=== PATIENT | female | born 2000 | race Caucasian/White ===

== ENCOUNTER → 2023-06-03 | Outpatient (CLI) | payer BC, SELFPAY ==
[2023-06-03 10:04] LABS: Absolute Lymphocyte Count 2.22 X10^3/uL (0.83-4.51); Absolute Neutrophil Count 3.4 X10^3/uL (2.0-7.7); Basophil# 0.09 X10^3/uL; Basophil% 1.4 % (0-1); Eosinophil# 0.09 X10^3/uL; Eosinophils% 1.4 % (0-5); Hematocrit 43.3 % (37-47); Hemoglobin 14.3 g/dL (12.0-15.0); Lymphocyte # 2.22 X10^3/ul (0.83-4.51); Lymphocyte % 35.1 % (19-41); Mean Corpuscular Hgb 27.7 pg (27.0-32.0); Mean Corpuscular Volume 83.8 fL (81-99); Mean Platelet Vol. 11.1 fl (6.2-12.0); Monocyte% 7.9 % (0-10); NRBC Flagged by Analyzer 0 % (0-5); Neutrophil # 3.42 X10^3/uL (2.7-7.7); Platelet Count 303 K/mm3 (150-450); RBC Distribution Width CV 13.7 % (11.6-14.6); RBC Distribution Width SD 42.2 fl (35.1-43.9); Red Blood Count 5.17 M/mm3 (4.2-5.4); White Blood Count 6.3 K/mm3 (4.4-11.0)
[2023-06-03 10:30] LABS: Vitamin D,25 Hydroxy 28.1 ng/mL
[2023-06-03 10:52] LABS: ALB/GLOB Ratio 0.7 RATIO (0.9-2.4); AST(SGOT) 22 U/L (15-37); Alanine Aminotransfer ALT/SGPT 43 U/L (13-56); Albumin, Serum 3.2 g/dL (3.2-5.0); Alkaline Phosphatase 80 U/L (45-117); Anion Gap 7 (5-15); BUN 10 mg/dL (7-18); BUN/Creat Ratio 11.9 RATIO (10-20); Calcium,Total 8.9 mg/dL (8.5-10.1); Chloride 106 mmol/L (98-107); Cholesterol 169 mg/dL (200); Creatinine, Serum 0.84 mg/dL (0.55-1.02); EST Glomerular Filtration Rate 88 mL/min (>60); Est Glom Filt Rate - Afr Amer 106 mL/min (>60); Globulin 4.5 g/dL (2.2-4.2); Glucose 86 mg/dL (74-106); High Density Lipoprotein 73 mg/dL; Potassium 4.1 mmol/L (3.5-5.1); Protein, Total 7.7 g/dL (6.4-8.2); Sodium Level 138 mmol/L (136-145); Thyroid Stim Hormone (TSH) 0.76 uIU/mL (0.358-3.74); Triglycerides 60 mg/dL; Very Low Density Lipoprotein 12 mg/dL (5-40)
== END | disposition home or self-care (01) ==
PROVIDERS: Visit Provider Obstetrics & Gynecology
DX: Z01.419 Encounter for gynecological examination (general) (routine) without abnormal findings (principal); Z13.1 Encounter for screening for diabetes mellitus; Z13.220 Encounter for screening for lipoid disorders; Z13.29 Encounter for screening for other suspected endocrine disorder; Z13.21 Encounter for screening for nutritional disorder
CPT/HCPCS: 36415; 80053; 80061; 82306; 84443; 85025

== ENCOUNTER → 2023-12-24 | Outpatient (CLI) | payer BC, SELFPAY ==
[2023-12-24 09:28] LABS: Absolute Lymphocyte Count 1.59 X10^3/uL (0.83-4.51); Absolute Neutrophil Count 6.2 X10^3/uL (2.0-7.7); Basophil# 0.05 X10^3/uL; Basophil% 0.6 % (0-1); Eosinophil# 0.08 X10^3/uL; Eosinophils% 0.9 % (0-5); Hematocrit 39.9 % (37-47); Hemoglobin 13.5 g/dL (12.0-15.0); Lymphocyte # 1.59 X10^3/ul (0.83-4.51); Lymphocyte % 18.1 % (19-41); Mean Corp Hgb Conc 33.8 g/dL (32-36); Mean Corpuscular Hgb 28.3 pg (27.0-32.0); Mean Corpuscular Volume 83.6 fL (81-99); Mean Platelet Vol. 10.2 fl (6.2-12.0); Monocyte# 0.82 X10^3/uL; Monocyte% 9.4 % (0-10); NRBC Flagged by Analyzer 0 % (0-5); Neutrophil # 6.21 X10^3/uL (2.7-7.7); Neutrophil % 70.8 % (47-70); Platelet Count 260 K/mm3 (150-450); RBC Distribution Width CV 13.6 % (11.6-14.6); RBC Distribution Width SD 41.9 fl (35.1-43.9); Red Blood Count 4.77 M/mm3 (4.2-5.4); White Blood Count 8.8 K/mm3 (4.4-11.0)
--- OUTSIDE RECORDS SUMMARY | 2023-12-24 09:29 | XMS RPT_ITS | CCD ---
Author Name Unknown Address [address] [place] [id number] Organization [facility] Care Team Providers Care Engineering Documentation Specialist Name Role Phone SLAGA, PAU M Unavailable Unavailable SLAGA, PUA M Unavailable Unavailable SLAGA, PAU M Unavailable Unavailable SLAGA, PAU M Unavailable Unavailable SLAGA, PAU M Unavailable Unavailable SLAGA, PAU M Unavailable Unavailable SLAGA, PAU M Unavailable Unavailable SERRI, GENEISO Unavailable Unavailable SLAGA, PAU M Unavailable Unavailable ERICA WILLARD Unavailable Unavailab ERICA Guerrier Unavailable Unavailab ERICA Guerrier Unavailable Unavailab ERICA Guerrier Unavailable Unavailab ERICA Guerrier Unavailable Unavailab ERICA Guerrier Unavailable Unavailab ERICA Guerrier Unavailable Unavailab ERICA Guerrier Unavailable Unavailab ERICA Guerrier Unavailable Unavailab ERICA Guerrier Unavailable Unavailab madelin RENTERIA PRIMARY MD ORLIN Unavailable Unavailable AMNA, LIS Unavailable Unavailable Problems Problem Classification Problem Date Documented Date Episodic/Chronic Essential hypertension (2 sources) Essential (primary) hypertension; Translations: [Essential (primary) hypertension] Onset: 09-05-2018 Chronic Genitourinary symptoms and ill-defined conditions (2 sources) Proteinuria, unspecified; Translations: [Proteinuria, unspecified] Onset: 09-12-2018 Episodic Headache; including migraine (2 sources) Migraine without aura, not intractable, without status migrainosus; Translations: [Migraine without aura, not intractable, without status migrainosus] Onset: 09-12-2018 Chronic Malaise and fatigue (2 sources) Chronic fatigue, unspecified; Translations: [Chronic fatigue, unspecified] Onset: 10-15-2017 Chronic Malaise and fatigue (2 sources) Other fatigue; Translations: [Other fatigue] Onset: 09-05-2018 Episodic Nonspecific chest pain (2 sources) Other chest pain; Translations: [Other chest pain] Onset: 09-12-2018 Episodic Other injuries and conditions due to external causes (2 sources) Angioneurotic edema, sequela; Translations: [Angioneurotic edema, sequela] Onset: 09-12-2018 Episodic Other nutritional; endocrine; and metabolic disorders (2 sources) Obesity, unspecified; Translations: [Obesity, unspecified] Onset: 09-05-2018 Chronic Other nutritional; endocrine; and metabolic disorders (2 sources) Abnormal weight gain; Translations: [Abnormal weight gain] Onset: 09-05-2018 Episodic Residual codes; unclassified (2 sources) Localized edema; Translations: [Localized edema] Onset: 09-05-2018 Episodic Results Test Name Value Interpretation Reference Range Facil ity Encounters Encounter Date Encounter Type Care Provider Facility Start: 09-26-2018 End: 09-26-2018 Emergency department patient visit MD [facility] Start: 09-21-2018 Patient encounter procedure ERICA WILLARD Facility:B Start: 09-13-2018 End: 09-14-2018 Patient encounter procedure ERICA WILLARD Facility:B Start: 09-12-2018 End: 09-17-2018 Patient encounter procedure ERICA WILLARD Facility:A Start: 09-12-2018 End: 09-17-2018 Patient encounter procedure ERICA WILLARD Facility:A Start: 09-05-2018 End: 09-10-2018 Patient encounter procedure ERICA WILLARD Facility:A Start: 08-28-2018 End: 08-28-2018 Emergency department patient visit PAU Wilton SHEKHAR Facility:A Start: 08-22-2018 Patient encounter procedure PAU M SHEKHAR Facility:A Start: 10-15-2017 End: 10-20-2017 Patient encounter procedure PAU Wilton SHEKHAR Facility:[facility] Payers Date Payer Category Payer Unknown [id number] 2000 Unknown [id number] 2.16.8 [id number] 1998 Unknown [id number] 2.16.8 [id number] 1998 Unknown [id number] 2.16.8 [id number] 1998 Unknown [id number] 2.16.8 [id number] 1998 Unknown [id number] 2.16.8 [id number] 1998 Unknown [id number] 2.16.8 [id number] 1998 Unknown [id number] 2.16.8 [id number] 1998 Unknown [id number] 2.16.8 [id number] 1998 Unknown [id number] 2.16.8 [id number] 1998 Unknown [id number] 2.16.8 [id number] Summary Purpose Family History No Family History Records FoundNo Family History Records Found Advance Directives No Advanced Directives Records FoundNo Advanced Directives Records Found Additional Source Comments INFORMATION SOURCE (unrecogn ized section and content) DATE CREATED AUTHOR AUTHOR'S RAJNI ATVINCENZO 10/12/2018 [facility] FOR RECORDS PERTAINING TO PATIENTS WHO ARE OR HAVE BEEN ENROLLED IN A CHEMICAL DEPENDENCY/SUBSTANCEABUSE PROGRAM, SOME INFORMATION MAY BE OMITTED. This clinical summary was aggregated from multiple sources. Caution should be exercised in using it in the provision of clinical care. This summary normalizes information from multiple sources, and as a consequence, information in this document may materially change the coding, format and clinical context of patient data. In addition, data may be omitted in some cases. CLINICAL DECISIONS SHOULD BE BASED ON THE PRIMARY CLINICAL RECORDS. [facility] [employer] provides no warranty or guarantee of the accuracy or completeness of information in this document.
[2023-12-24 10:46] LABS: HIV - WCH Non-Reactive (Nonreactive); Hepatitis B Surface Antigen Non-Reactive (Nonreactive); Hepatitis C Antibody Non-Reactive (Nonreactive); Rubella IgG Reactive (Nonreactive); Syphilis Antibodies Non-reactive
[2023-12-24 12:06] LABS: Hemoglobin A1c 5.2 % (3.8-5.6)
[2023-12-28 07:08] LABS: Chlamydia By Nucleic Acid AMP Negative (Negative); Gonococcus By Nucleic Acid AMP Negative (Negative)
[2023-12-31 21:46] LABS: HPV Reflexed? NOT INDICATED
== END | disposition home or self-care (01) ==
PROVIDERS: Referring Provider Registered Nurse; Visit Provider Registered Nurse
DX: Z34.90 Encounter for supervision of normal pregnancy, unspecified, unspecified trimester (principal)
CPT/HCPCS: 36415; 83036; 85025; 86703; 86762; 86780; 86803; 86850; 86900; 86901; 87086; 87088; 87340; 87491; 87591; 88175; G0145

== ENCOUNTER → 2024-04-06 | Outpatient (CLI) | payer BC, SELFPAY ==
--- NOTE | 2024-04-06 13:17 | US_ITS ---
STUDY: SECOND AND THIRD TRIMESTER OBSTETRICAL ULTRASOUND - LIMITED REASON FOR EXAM: Female, 23 years old growth LMP: October 21, 2023. PRIOR ULTRASOUND: None. TECHNIQUE: Transabdominal TECHNICAL QUALITY: Adequate. FINDINGS: There is a single intrauterine fetus. The fetus is in a cephalic presentation. There is demonstrated cardiac activity with a heart rate of 130 bpm. There is a normal amniotic fluid volume. The largest amniotic fluid pocket measures 4.6 cm x 5.4 cm. The amniotic fluid index (TRENT) is within normal limits. The placenta is anterior in location and is not low lying. There are Grade 0 placental changes. The cervix measures 3.6 cm in length. There is a 2.6 cm x 1.8 cm cyst in the cervix. BIOMETRY: BPD: 5.83 cm: 23 weeks, 6 days HC: 21.85 cm: 23 weeks, 6 days AC: 19.5 cm: 24 weeks, 1 days FL: 4.27 cm: 4 weeks, 0 days Age by LMP: 24 weeks, 0 days. DARVIN by LMP: July 27, 2024. age by current US: 23 weeks, 6 days. DARVIN by current US: July 28, 2024. Estimated weight: 661 grams, +/- 99 grams, 47 percentile. US/OB Limited With Biometrics IMPRESSION: Single live intrauterine gestation with a mean gestational age of 23 weeks and 6 days. Electronically Signed: Shalom Thomson MD at 14:36 EDT ,
== END | disposition home or self-care (01) ==
PROVIDERS: Referring Provider Advanced Practice Midwife; Visit Provider Advanced Practice Midwife
DX: Z34.02 Encounter for supervision of normal first pregnancy, second trimester (principal); E66.9 Obesity, unspecified
CPT/HCPCS: 76816

== ENCOUNTER → 2024-05-05 | Outpatient (CLI) | payer BC, SELFPAY ==
--- NOTE | 2024-05-05 08:07 | US_ITS ---
STUDY: SECOND AND THIRD TRIMESTER OBSTETRICAL ULTRASOUND - LIMITED REASON FOR EXAM: Female, 23 years old growth LMP: 10/21/2023 PRIOR ULTRASOUND: 04/06/2024 TECHNIQUE: Transabdominal TECHNICAL QUALITY: Adequate. FINDINGS: There is a single intrauterine fetus. The fetus is in a cephalic presentation. There is demonstrated cardiac activity with a heart rate of 131 bpm. There is a normal amniotic fluid volume. The largest amniotic fluid pocket measures 5.0 cm. The amniotic fluid index (TRENT) is cm. The placenta is anterior in location and is not low lying. There are Grade 1 placental changes. The cervix measures 4.0 cm in length. BIOMETRY: BPD: 7.1 cm: 28 weeks, 3 days HC: 26.0 cm: 28 weeks, 2 days AC: 24.7 cm: 29 weeks, 0 days FL: 5.3 cm: 28 weeks, 2 days Age by LMP: 28 weeks, 1 days. DARVIN by LMP: 07/27/2024. age by prior US: weeks, days. DARVIN by prior US: . age by current US: 28 weeks, 2 days. DARVIN by current US: 07/26/2024. Estimated weight: 1276 grams, +/- 191 grams, 60 percentile. Gender: US/OB Limited With Biometrics IMPRESSION: Living intrauterine of 28 weeks 2 days as described above Electronically Signed: Seth Sotelo MD at 11:36 EDT ,
[2024-05-05 08:24] LABS: Absolute Lymphocyte Count 2.08 X10^3/uL (0.83-4.51); Absolute Neutrophil Count 9.2 X10^3/uL (2.0-7.7); Basophil# 0.07 X10^3/uL; Basophil% 0.6 % (0-1); Eosinophil# 0.08 X10^3/uL; Eosinophils% 0.7 % (0-5); Hematocrit 38.8 % (37-47); Hemoglobin 12.4 g/dL (12.0-15.0); Lymphocyte # 2.08 X10^3/ul (0.83-4.51); Lymphocyte % 17.1 % (19-41); Mean Corpuscular Hgb 27.8 pg (27.0-32.0); Mean Platelet Vol. 10.2 fl (6.2-12.0); Monocyte# 0.63 X10^3/uL; Monocyte% 5.2 % (0-10); NRBC Flagged by Analyzer 0 % (0-5); Neutrophil # 9.17 X10^3/uL (2.7-7.7); Neutrophil % 75.4 % (47-70); Platelet Count 253 K/mm3 (150-450); RBC Distribution Width CV 14.2 % (11.6-14.6); RBC Distribution Width SD 44.8 fl (35.1-43.9); Red Blood Count 4.46 M/mm3 (4.2-5.4); White Blood Count 12.2 K/mm3 (4.4-11.0)
[2024-05-05 08:52] LABS: Glucose Challenge Gest 1H 50g 79 mg/dL (70-140)
[2024-05-05 09:14] LABS: HIV - WCH Non-Reactive (Nonreactive); Syphilis Antibodies Non-reactive
== END | disposition home or self-care (01) ==
PROVIDERS: Obstetrics & Gynecology; Referring Provider Advanced Practice Midwife; Visit Provider Advanced Practice Midwife
DX: Z34.02 Encounter for supervision of normal first pregnancy, second trimester (principal)
CPT/HCPCS: 36415; 76816; 82950; 85025; 86703; 86780

== ENCOUNTER → 2024-06-02 | Outpatient (CLI) | payer BC, SELFPAY ==
--- NOTE | 2024-06-02 12:09 | US_ITS ---
EXAM: US , LIMITED CLINICAL INDICATION: growth TECHNIQUE: Real-time limited ultrasound of the maternal uterus with image documentation. COMPARISON: 05/05/2024 FINDINGS: GESTATIONAL AGE: Estimated gestational age: 33 weeks, 1 day. Limited anatomic assessment secondary to gestational age. DARVIN: 07/20/2024. EFW: Estimated weight: 1993 g (52%). BPD: 8.1 cm. HC: 30.5 cm. AC: 28.5 cm. FL: 6.21 cm. POSITION: Breech presentation. HEART RATE: heart rate: 141 bpm. PLACENTA: Anterior placenta. AMNIOTIC FLUID: Amniotic fluid volume is 19 cm with maximal vertical pocket of 6.4 cm. CERVIX: The internal cervical os is not visualized. ADNEXA: The maternal ovaries are not visualized. US/OB Limited With Biometrics IMPRESSION: Single viable IUP now measuring 33 weeks, 1 day with a weight of 1993 g (52%). Interval growth. Electronically Signed: Ion Kelley DO at 18:04 EDT ,
== END | disposition home or self-care (01) ==
PROVIDERS: Referring Provider Advanced Practice Midwife; Visit Provider Advanced Practice Midwife
DX: O99.212 Obesity complicating pregnancy, second trimester (principal); Z3A.00 Weeks of gestation of pregnancy not specified
CPT/HCPCS: 76816

== ENCOUNTER → 2024-06-30 | Outpatient (CLI) | payer BC, SELFPAY ==
--- NOTE | 2024-06-30 07:56 | US_ITS ---
STUDY: SECOND AND THIRD TRIMESTER OBSTETRICAL ULTRASOUND - LIMITED REASON FOR EXAM: Female, 23 years old growth -- obesity LMP: October 21, 2023. PRIOR ULTRASOUND: Comparison is made with prior study June 02, 2024. TECHNIQUE: Transabdominal TECHNICAL QUALITY: Adequate. FINDINGS: There is a single intrauterine fetus. The fetus is in a breech presentation. There is demonstrated cardiac activity with a heart rate of 132 bpm. There is a normal amniotic fluid volume. The largest amniotic fluid pocket measures 6.28 cm. The amniotic fluid index (TRENT) is 17.4 cm. The placenta is anterior in location and is not low lying. There are Grade 1 placental changes. BIOMETRY: BPD: 9.06 cm: 36 weeks, 5 days HC: 34.06 cm: 39 weeks, 1 days AC: 32.94 cm: 36 weeks, 6 days FL: 7.01 cm: 36 weeks, 0 days Age by LMP: 36 weeks, 1 days. DARVIN by LMP: July 27, 2024. age by prior US: 37 weeks, 1 days. DARVIN by prior US: July 20, 2020. age by current US: 37 weeks, 1 days. DARVIN by current US: July 20, 2024. Estimated weight: 3015 grams, +/- 452 grams, 67.5 percentile. US/OB Limited With Biometrics IMPRESSION: Single live intrauterine gestation with a mean gestational age of 37 weeks and 1 day. Electronically Signed: Shalom Thomson MD at 9:07 EDT ,
== END | disposition home or self-care (01) ==
PROVIDERS: Referring Provider Advanced Practice Midwife; Visit Provider Advanced Practice Midwife
DX: Z34.02 Encounter for supervision of normal first pregnancy, second trimester (principal); E66.9 Obesity, unspecified
CPT/HCPCS: 76816; 87081

== ENCOUNTER 2024-07-21 05:11 | Inpatient (IN) | payer BC, SELFPAY ==
[2024-07-21] VITALS (26 sets, daily range): BP systolic 96–118; BP diastolic 53–80; PULSE 73–97; RESP 12–27; TEMP 36.2–37.1; O2SAT 94–100; BMI 42.7
[2024-07-21] MEDS: Lactated Ringers 1,000 ML 999 ML IV (05:20)
[2024-07-21 05:38] LABS: Absolute Lymphocyte Count 2.23 X10^3/uL (0.83-4.51); Absolute Neutrophil Count 8.4 X10^3/uL (2.0-7.7); Basophil# 0.05 X10^3/uL; Basophil% 0.4 % (0-1); Eosinophils% 0.9 % (0-5); Hematocrit 38.3 % (37-47); Hemoglobin 12.6 g/dL (12.0-15.0); Lymphocyte # 2.23 X10^3/ul (0.83-4.51); Mean Corp Hgb Conc 32.9 g/dL (32-36); Mean Corpuscular Hgb 27.8 pg (27.0-32.0); Mean Corpuscular Volume 84.5 fL (81-99); Mean Platelet Vol. 10.4 fl (6.2-12.0); Monocyte# 0.95 X10^3/uL; Monocyte% 8.1 % (0-10); NRBC Flagged by Analyzer 0 % (0-5); Neutrophil # 8.37 X10^3/uL (2.7-7.7); Neutrophil % 71.1 % (47-70); Platelet Count 219 K/mm3 (150-450); RBC Distribution Width CV 14.7 % (11.6-14.6); RBC Distribution Width SD 45.1 fl (35.1-43.9); Red Blood Count 4.53 M/mm3 (4.2-5.4); White Blood Count 11.8 K/mm3 (4.4-11.0)
[2024-07-21 06:11] LABS: Syphilis Antibodies Non-reactive
[2024-07-21] MEDS: Acetaminophen 500 MG Tablet 1000 MG PO ×3 (06:25→18:58)
[2024-07-21] MEDS: Lactated Ringers 1,000 ML 150 ML IV (06:25)
[2024-07-21] MEDS: Sodium Citrate/Citric Acid 30 ML UDC PO (07:15)
[2024-07-21] MEDS: Cefazolin 2 GM in 0.9% Normal Saline (100mL Bag) 100 ML IV (07:21)
[2024-07-21] MEDS: Ondansetron 4 MG/2 ML Vial IV ×2 (07:23→14:34)
--- NOTE | 2024-07-21 07:29 | HP.PCM_ITS ---
History and Physical Date of Admission: 07/21/24 OFFICE VISIT Date of Service: 07/19/24 MR#: [id number] Acct: [id number] Name: SERA MCINTYRE Rep #: [id number] : 2000 Provider: Dr. 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 Allergies No Known Allergies Allergy (Verified 07/19/24 12:04) Medications ?Medication ?Instructions ?Recorded ?Confirmed ?Type multivit-min no.71-iron fum 28 cap PO 12/17/23 07/19/24 History mg-folate no.1 1 mg-dha 300 mg capsule (PNV-[place]) Last Menstrual Period: 10/21/23 Zika: Zika virus screening: Negative : No Have you fallen in the past year?: No PFSH PFSH Surgical History [place] teeth extracted Family History Mother High cholesterol Thyroid disorderGrandmother Thyroid disorder Diabetes High cholesterol Hypertension Social History adopted: No household members: spouse current occupational status: employed current occupation: [employer] current occupational exposures/hazards: No pets and animals: No history of recent travel: No sexually active: Yes Smoking Status: Never smoker alcohol intake: current alcohol intake frequency: a few times a month details: Not while substance use type: does not use diet: gluten free well-balanced diet: daily or most days caffeine: Yes Type: coffee Number of servings: 1 eating out: rarely or never during the past year weight has: remained stable what type of physical activity do you participate in: walking frequency: 1-2 times per week duration: 15-30 minutes/day yasmin/sabianism: None seatbelt use: always do you feel safe at home: Yes additional social history: - Tor History 1 Elective abortions Hx Para 0 Spontaneous abortions Hx # Term Pregnancies Ectopic pregnancies Hx # Pregnancies Multiple births # of living children HPI 39 WK OB *SM ONLY CSECTION* Details: SERA MCINTYRE is a 23 year old who presents for routine OB visit. OB Visit DARVIN Calculator Estimated Delivery Date Method Current WG Current Estimate 07/27/24 LMP (Certain) 38w 6d Expected Delivery Route/Plan Labor Preferences- CB/BF classes: encouraged labor support person: Tor labor intervention preferences: [] pain management options preferred: epidural cut cord/dad catch: no : yes PP control planned: discussed discussed possible routes of delivery and associated risks: [] special requests: [] Specific Issue/Plans Covid status: [] Flu vaccine: declined Tdap vaccine: declines Rhogam: NA LARC form signed: declines Problem list reviewed and updated with the most current plan of care details and appropriate orders placed. Relevant counseling for the gestational age provided. Continue routine care and follow up unless otherwise noted in visit notes/problem list details Initial Weight: Not Recorded Date -?-?-?-?-?-?-?-?-?-?-?-?- EGA Weight BP Urine Prot -?-?-?-?-?-?-?-?-?-?-?-?- Glucose FHR FuHt Pres Dilation -?-?-?-?-?-?-?-?-?-?-?-?- Effaced St Visit Note 12/24/23-?-?-?-?-?-?-?-?-?-?-?-?- 9w 1d 213 lb 124/64 -?-?-?-?-?-?-?-?-?-?-?-?- 168 -?-?-?-?-?-?-?-?-?-?-?-?- LC- CRL con with LMP. hbga1c ordered for obesity. declines carrier/genetics. may desire afp for family hx of spina bifida. 01/13/24-?-?-?-?-?-?-?-?-?-?-?-?- 12w 0d 212 lb 8 oz 130/78 Negative -?-?-?-?-?-?-?-?-?-?-?-?- Negative -?-?-?-?-?-?-?-?-?-?-?-?- KW- no vb/cramping. FHT noted with handheld US. anatomy US ordered. PRR 02/10/24-?-?-?-?-?-?-?-?-?-?-?-?- 16w 0d 214 lb 120/64 Negative -?-?-?-?-?-?-?-?-?-?-?-?- Negative 162 -?-?-?-?-?-?-?-?-?-?-?-?- MH-No VB, cramping. Discussed and declines AFP. MFM US scheduled. 03/09/24-?-?-?-?-?-?-?-?-?-?-?-?- 20w 0d 215 lb 118/70 Negative -?-?-?-?-?-?-?-?-?-?-?-?- Negative 154 -?-?-?-?-?-?-?-?-?-?-?-?- MH-No VB, cramping. Feeling some flutters. Had MFM anatomy US and anterior placenta and discussed will limit movement felt. Also told had Juvencio's cyst in vagina-reassured. 04/06/24-?-?-?-?-?-?-?-?-?-?-?-?- 24w 0d 222 lb 6 oz 118/80 Negative -?-?-?-?-?-?-?-?-?-?-?-?- Negative 145 -?-?-?-?-?-?-?-?-?-?-?-?- JV- no lof, vaginal bleeding, or cramping. GCT ordered. no complaints today 05/05/24-?-?-?-?-?-?-?-?-?-?-?--?- 28w 1d 229 lb 106/70 Negative -?-?-?-?-?-?-?-?-?-?-?-?- Negative 140 28 -?-?-?-?-?-?-?-?-?-?-?-?- SM- no vb lof good fm no regualr ctx 05/16/24-?-?-?-?-?-?-?-?-?-?-?-?- 29w 5d 234 lb 4 oz 110/75 Negative -?-?-?-?-?-?-?-?-?-?-?-?- Negative 145 30 -?-?-?-?-?-?-?-?-?-?-?-?- MH-No VB, LOF. Good FM. Denies concerns 06/02/24-?-?-?-?-?-?-?-?-?-?-?-?- 32w 1d 238 lb 127/81 Negative -?-?-?-?-?-?-?-?-?-?-?-?- Negative 130 32 -?-?-?-?-?-?-?-?-?-?-?-?- KW- no vb.lof. ctx. good fm. growth US today. 06/13/24-?-?-?-?-?-?-?-?-?-?-?-?- 33w 5d 241 lb 113/74 -?-?-?-?-?-?-?-?-?-?-?-?- 120 34 Cephalic -?-?-?-?-?-?-?-?-?-?-?-?- SM- SM- no vb lof good fm no regular ctx, hiccups heard and large variations in FHT so NST done and reassuring. carmen on US, feels vertex today. 06/30/24-?-?-?-?-?-?-?-?-?-?-?-?- 36w 1d 244 lb 110/77 -?-?-?-?-?-?-?-?-?-?-?-?- 130 3637 Breech -?-?-?-?-?-?-?-?-?-?-?-?- SM- no vb lof good fm noreuglar ctx discussed options of ECV versus primary csection, decision to proceed with csection. will repeat scan in office next week. 07/04/24-?-?-?-?-?-?-?-?-?-?-?-?- 36w 5d 246 lb 6 oz 123/76 Negative -?-?-?-?-?-?-?-?-?-?-?-?- Negative 134 37 Breech -?-?-?-?-?-?-?-?-?-?-?-?- JV- pt would like to proceed with a section. labor precautions discussed. 07/12/24-?-?-?-?-?-?-?-?-?-?-?-?- 37w 6d 249 lb 126/85 Negative -?-?-?-?-?-?-?-?-?-?-?-?- Negative 140 Breech -?-?-?-?-?-?-?-?-?-?-?-?- SM- proceed with primary no vb lof good fm nor egular ctx 07/19/24-?-?-?-?-?-?-?-?-?-?-?-?- 38w 6d 249 lb 119/80 Negative -?-?-?-?-?-?-?-?-?-?-?-?- Negative 145 Breech -?-?-?-?-?-?-?-?-?-?-?-?- SM- no vb lof good fm preop done ACOG First Trimester First Trimester: Discussed Second Trimester Second Trimester: Signs and Symptoms of Labor and Reproductive Life Planning & Contreception; Discussed Tobacco Cessation, Discussed Depression/Anxiety and Discussed Intimate Partner Violence Third Trimester Third Trimester: Pain Management Plans, Labor support person(s), Immediate Larc, Circumcision preference, Movement Monitoring, Signs and Symptoms of Preeclampsia, Infant Feeding No and Family Medical Leave or Disability Forms ROS Const Reports system reviewed and no additional complaints, except as documented Card Reports system reviewed and no additional complaints, except as documented Resp Reports system reviewed and no additional complaints, except as documented GI Reports system reviewed and no additional complaints, except as documented and Reports nausea Reports system reviewed and no additional complaints, except as documented Musc Reports system reviewed and no additional complaints, except as documented Exam Const General: cooperative, healthy appearing, comfortable and anxious HENMT Head: normal to inspection Nose: external nose normal Face and sinus: normal facial exam Neck Neck: normal visual inspection, full ROM and no lymphadenopathy Thyroid: thyroid normal Chest Chest palpation & inspection: normal inspection of the chest Resp Effort & Inspection: normal respiratory effort GI Inspection: normal to inspection Palpation: soft and other (gravid uterus) Other: breech and appropriate size for gestational age Other: Cervical Exam: Extrem General: pedal edema Results POC Urinalysis 2 Dip (Clinic) Office Urine Glucose Negative Last Edit by Keeley Garcia on 07/19/24 12:06 Office Urine Protein Negative Last Edit by Keeley Garcia on 07/19/24 12:06 Coding Level of Care Code OB Routine Diagnoses Breech presentation O32.1XX0 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 scheduled for 07/21 @ 7:15 with (2) Juvencio's duct cyst: Status: Acute Comment: vaginal/seen on MFM US. Reassured (3) FHx: spina bifida: Status: Acute Comment: Distant hx- Husbands Paternal Grt Aunt. discussed and declines afp (4) Supervision of normal first : Status: Acute Qualifiers: Trimester: third trimester Qualified Code(s): Z34.03 - Encounter for supervision of normal first , third trimester Comment: PRR,, DARVIN 07/27/24 boy Benigno Tor (5) : Status: Acute Qualifiers: Weeks of gestation: 38 weeks Qualified Code(s): Z3A.38 - 38 weeks gestation of Comment: nl anatomy, declines genetic & carrier testing & AFP (6) Obesity affecting : Status: Acute Comment: encouraged healthy weight gain. nl HgA1c US 52% Orders: Orders POC Urinalysis 2 Dip (Clinic) Today Plan After discussing the patient's diagnosis and treatment plan options, patient wishes to proceed with surgical management. I have discussed with the patient the risks, benefits, and alternatives of the procedure which include but are not limited to risks of anesthesia, bleeding, infection, possible damage to bowel, bladder, or surrounding vasculature which could lead to additional surgery to evaluate any complications. Patient agrees to procedure and wishes to proceed. ACOG/uptodate references given for additional information regarding procedure. UPDATE- I have seen the patient and performed any clinically relevant updates to the history and physical exam. Fely Lucio MD
--- NOTE | 2024-07-21 08:17 | EX.PCM.OBRPT ---
Assessment & Plan (1) : QUALIFIERS: Weeks of gestation: 38 weeks Qualified Code(s): Z3A.38 - 38 weeks gestation of COMMENT: nl anatomy, declines genetic & carrier testing & AFP (2) Supervision of normal first : QUALIFIERS: Trimester: third trimester Qualified Code(s): Z34.03 - Encounter for supervision of normal first , third trimester COMMENT: PRR,, DARVIN 07/27/24 boy Benigno Tor (3) FHx: spina bifida: COMMENT: Distant hx- Husbands Paternal Grt Aunt. discussed and declines afp (4) Juvencio's duct cyst: COMMENT: vaginal/seen on MFM US. Reassured (5) Breech presentation: COMMENT: discussed options of ECV versus primary , if persistent breech plan proceeding with primary . scheduled for 07/21 @ 7:15 with SM (6) Obesity affecting : COMMENT: encouraged healthy weight gain. nl HgA1c US 52% (7) delivery delivered: COMMENT: SM LTS BREECH benigno rubin Maternal Data Information DARVIN Calculator Estimated Delivery Date Method Current WG Current Estimate 07/27/24 LMP (Certain) 39w 1d Final DARVIN Source: LMP Details Operative Information Date of Procedure: 07/21/24 Pre-Operative Diagnosis: breech Post-Operative Diagnosis: same Indications Narrative: Surgeon: Fely Lucio MD Classification: Scheduled Procedure Type: low transverse mobile application development lead #1: Marlene Tobar mobile application development lead #2: Shyanne Jerez Type of Anesthesia: Spinal Special Medications: none Antibiotic Given: Ancef 2 grams IV x1 Drain: Babb to straight drain Estimated Blood Loss: 800 Fluids Replaced: crystalloid Procedure Start Time: 07:45 Findings Description of Procedure: Spinal anesthesia was placed without difficulty. Babb catheter was placed. The patient was placed in the dorsal supine position with leftward tilt. Patient was prepped and draped in the normal sterile fashion. Pfannenstiel skin incision was made with the scalpel and carried through to the underlying layer of fascia with the scalpel. Fascia was nicked in the midline and the incision extended laterally. The rectus bellies were dissected off superiorly and inferiorly with out complication both sharply and bluntly. The peritoneum was entered digitally. The incision was stretched and a low transverse uterine incision was made with the scalpel. The buttox was delivered atraumatically and the right and left legs were swept anteriorly and delivered, followed by the body and the arms which were swept anteriorly and delivered. Gentle traction was placed on the mentum to flex the head which was delivered without complication. The cord was clamped and cut and the infant was handed off to awaiting nurse. The placenta was delivered spontaneously immediately following and was noted to be intact and have a three-vessel cord. The uterus was exteriorized cleared of all clots and debris, and the incision was closed in a single layer closure using #1 Monocryl. The ovaries and fallopian tubes were noted to be within normal limits. The uterus was returned to the maternal abdomen and gutters were cleared of all clots and debris. hemoblast applied to the incision for additional hemoastasis which was noted. The peritoneum was closed with 3-0 Monocryl in a running fashion. Fascia was closed with 0 PDS in a running fashion. Subcutaneous tissue was copiously irrigated and the skin was closed with 3-0 Monocryl in a subcuticular fashion. Mepilex dressing was applied without complication. Patient was taken to recovery in stable condition. It was discussed with the patient that based on the clinical information obtained during this encounter, combined with her history, at this time I would recommend vaginal or cesareans for future deliveries if further pregnancies are desired. Presentation: Positive for Complete Breech Amniotic Membrane Rupture Type: Artificial Amniotic Fluid Description: Clear Placenta Disposition: [facility] Cord Vessel Description: 3 Vessels Delayed Cord Clamping: Yes Complications Risks of Surgery Discussed w/Patient: Bleeding, Infection, Need for Future C-Sections and Injury to surrounding structure(s) including bowel and bladder Vaginal Delivery Complication Complications: None Admit VTE Documentation VTE Present on Admission: No VTE Mechan Device Prophylaxis: SCD's Procedures Urinary/Genital [id number]: [id number] Delivery [facility]
--- NOTE | 2024-07-21 08:20 | PCM.DC ---
Discharge Instructions Diet Discharge Diet: No restrictions Activity Discharge Activity: May Not Drive (for 2 weeks or while taking narcotic pain medications.), May Shower and May Take a Tub Bath (in 7 days) May shower in (days): 0 May resume sexual activity in: 4-6 weeks Weight Bearing Status: Full weight bearing Lifting Restrictions: 20 pounds Dressing / Incision Call your doctor if your incision/area has: Continuous Slow Oozing, Sudden Increased Bleeding, Increased Pain/ Swelling, Increased Redness and Foul Smelling Discharge Call your doctor if you observe: Fever of 101 or Higher and Using more than 1 pad per hour (for 2 hours) Suture Line Care: Avoid Pulling/Pushing and Avoid Pinching/Bending Cleanse incision/area with: Soap & Water and Keep Dressing Clean & Dry Follow Up Care Please Follow Up With: Fely Lucio MD When: Call [phone] to make an appointment for an incision check in 1-2 weeks. Test Results: Test results from this visit will be discussed in further detail at your follow-up appointment, if applicable. Discharge Plan Admission Admit Date/Time: 07/21/24 05:11 Attending Provider: Fely Lucio Primary Care Provider: Care Physician,Joann Primary Discharge Orders/Prescriptions Prescriptions: New oxycodone-acetaminophen [Percocet] 5-325 mg tablet 1 tab PO Q6H PRN (Reason: pain) 7 Days Qty: 20 0RF naproxen 500 mg tablet 500 mg PO BID PRN PRN (Reason: Pain) Qty: 30 1RF No Action PNV-Bunnlevel 28-1-300 mg capsule PO Referrals / Follow Up: Care Physician,Joann Primary [Primary Care Provider] - Disposition Disposition (needs filled in before D/C Order can be placed): Home, Self Care
[2024-07-21] MEDS: Oxytocin 15 Units/NS 250ml 15 UNITS/250 ML IV.SOLN 83 UNITS IV (08:45)
[2024-07-21] MEDS: Ketorolac 30 MG/ML Syringe IV ×2 (09:21→19:02)
[2024-07-22 00:07] VITALS: BP 101/66; PULSE 65; RESP 16; O2SAT 98
[2024-07-22] MEDS: Acetaminophen 500 MG Tablet 1000 MG PO ×3 (01:12→13:58)
[2024-07-22] MEDS: Ketorolac 30 MG/ML Syringe IV ×2 (01:12→08:14)
[2024-07-22] MEDS: 0.9% Saline Lock 10 ML Syringe IV ×2 (01:13→08:22)
[2024-07-22 02:07] VITALS: PULSE 77; RESP 16; O2SAT 98
[2024-07-22 04:05] VITALS: BP 106/69; PULSE 79; RESP 16; TEMP 36.2; O2SAT 99
--- NOTE | 2024-07-22 05:41 | PCM.PN.OB ---
Subjective Subjective Patient doing well without complaints. Tolerating PO. Ambulating and voiding without difficulty. Feeding well. Denies chest pain, shortness of breath, calf pain/swelling, fevers, chills, lightheadedness. Objective Data Objective Data Vital Signs: Vital Signs Temp Pulse Resp BP Pulse Ox O2 Del Method 97.2 F L 79 16 106/69 99 Room Air 07/22/24 04:05 07/22/24 04:05 07/22/24 04:05 07/22/24 04:05 07/22/24 04:05 07/22/24 04:05 Oxygen Delivery Method Room Air Weight: 248 lb 10.903 oz Body Mass Index (BMI) 42.7 Intake & Output: Intake and Output for Last 24 Hours 07/20/24 07/21/24 07/22/24 23:59 23:59 23:59 Intake Total 2510 / 2510 Output Total 2200 / 2200 100 / 100 Balance 310 / 310 -100 / -100 Lab / Micro Data Attestation: I reviewed the patient's lab results. 07/21/24 05:25 Labs: Laboratory Results - last 24 hr 07/21/24 05:25: Syphilis Total Ab Non-reactive, Blood Type A POSITIVE, Antibody Screen NEGATIVE ROS Constitutional Constitutional: Reports systems reviewed and no addt'l complaints, except as documented; Denies anorexia or headache(s) Cardiovascular Cardiovascular: Reports systems reviewed and no addt'l complaints, except as documented; Denies dizziness, dyspnea, nausea or tachypnea Respiratory/Chest Respiratory/Chest: Reports systems reviewed and no addt'l complaints, except as documented; Denies cough, dyspnea, shortness of breath at rest or tachypnea Gastrointestinal Gastrointestinal: Reports systems reviewed and no addt'l complaints, except as documented; Denies abdominal pain, constipation or nausea Genitourinary Genitourinary: Reports systems reviewed and no addt'l complaints, except as documented; Denies burning urination, difficulty urinating, dysuria, urinary frequency or urinary incontinence Musculoskeletal Musculoskeletal: Reports systems reviewed and no addt'l complaints, except as documented Integumentary Integumentary: Reports systems reviewed and no addt'l complaints, except as documented Neurologic Neurologic: Reports systems reviewed and no addt'l complaints, except as documented; Denies abnormal speech, dizziness or headache(s) Psychiatric Psychiatric: Reports systems reviewed and no addt'l complaints, except as documented Endocrine Endocrinology: Reports systems reviewed and no addt'l complaints, except as documented Hematologic/Lymphatic Hematologic/Lymphatic: Reports systems reviewed and no addt'l complaints, except as documented Physical Exam Const alert, oriented x3 and no apparent distress Neck full ROM Resp normal respiratory effort, normal air movement and no retractions Effort and Inspection: able to speak in complete sentences and symmetric chest movement GI soft to palpation Inspection: incision intact Bladder / Kidney Exam: bladder normal to palpation Uterus Palpation: uterus fundus firm Extremity normal to inspection and full ROM Psych mental status grossly normal, thought process normal and cooperative Assessment & Plan (1) delivery delivered: COMMENT: LTS [facility] brent boy PLAN: s/p LTCS PPD # 1 1. routine post care 2. breast feeding- support given 3. rh positive 4. rubella immune 5. Discharge home if desired (2) Obesity affecting : COMMENT: encouraged healthy weight gain. nl HgA1c US 52% (3) Juvencio's duct cyst: COMMENT: vaginal/seen on MFM US. Reassured (4) FHx: spina bifida: COMMENT: Distant hx- Husbands Paternal Grt Aunt. discussed and declines afp Charges/Coding Multi Select Codes Urinary/Genital Urinary/Genital CPT Codes: No Charge
[2024-07-22 06:20] VITALS: PULSE 84; RESP 16; O2SAT 98
[2024-07-22 06:49] LABS: Absolute Lymphocyte Count 2.33 X10^3/uL (0.83-4.51); Absolute Neutrophil Count 11.4 X10^3/uL (2.0-7.7); Basophil# 0.04 X10^3/uL; Basophil% 0.3 % (0-1); Eosinophil# 0.06 X10^3/uL; Eosinophils% 0.4 % (0-5); Hematocrit 36.2 % (37-47); Hemoglobin 11.8 g/dL (12.0-15.0); Lymphocyte # 2.33 X10^3/ul (0.83-4.51); Lymphocyte % 15.5 % (19-41); Mean Corp Hgb Conc 32.6 g/dL (32-36); Mean Corpuscular Hgb 27.8 pg (27.0-32.0); Mean Corpuscular Volume 85.4 fL (81-99); Mean Platelet Vol. 10.1 fl (6.2-12.0); Monocyte% 7.3 % (0-10); NRBC Flagged by Analyzer 0 % (0-5); Neutrophil # 11.44 X10^3/uL (2.7-7.7); Neutrophil % 75.8 % (47-70); Platelet Count 202 K/mm3 (150-450); RBC Distribution Width CV 14.8 % (11.6-14.6); RBC Distribution Width SD 45.7 fl (35.1-43.9); Red Blood Count 4.24 M/mm3 (4.2-5.4); White Blood Count 15.1 K/mm3 (4.4-11.0)
[2024-07-22 08:56] VITALS: BP 105/58; PULSE 77; RESP 16; TEMP 36.8; O2SAT 99
[2024-07-22] MEDS: Naproxen 500 MG Tablet PO (13:57)
[2024-07-22 14:05] VITALS: BP 120/79; PULSE 76; RESP 16; TEMP 36.9; O2SAT 98
== END 2024-07-22 18:45 | disposition home or self-care (01) | DRG 788 ==
PROVIDERS: Advanced Practice Midwife; Admitting Provider Obstetrics & Gynecology; Referring Provider Obstetrics & Gynecology; Visit Provider Obstetrics & Gynecology
PROC: 10D00Z1 Extraction of Products of Conception, Low, Open Approach (ICD-10-PCS; CPT 59514; principal; 2024-07-21 07:00)
DX: O32.1XX0 Maternal care for breech presentation, not applicable or unspecified (principal); O99.214 Obesity complicating childbirth; O34.63 Maternal care for abnormality of vagina, third trimester; O99.891 Other specified diseases and conditions complicating pregnancy; Q52.4 Other congenital malformations of vagina; Z37.0 Single live birth; Z3A.38 38 weeks gestation of pregnancy
CPT/HCPCS: 59025; 59050; 85025; 86780; 86850; 86900; 86901; 99221; J7120; A4216; G0378; J2405